=== PATIENT | male | born 1995 | race Asian ===

== ENCOUNTER 2024-04-29 22:34 | Emergency (ER) | payer OTHER, SELFPAY ==
[2024-04-29 22:36] VITALS: BMI 20.8
--- NOTE | 2024-04-29 22:53 | EDNOTE_ITS ---
<Statement entered by Shantel Zhao MD - 04/29/24 23:40> As co-signing physician, I was present and available for consult prn. I concur with the plan and care as documented by the midlevel provider. ED Skin Abcess FB-RME/HPI General Chief complaint: Skin/Abscess/Foreign Body Stated complaint: Rash x 3 mo Time Seen by Provider: 04/29/24 22:39 Arrival date/time: 04/29/24 22:34 RME / HPI RME / HPI narrative: 28-year-old male patient came in for evaluation regarding multiple skin lesions. Patient's been having multiple skin lesions, described as erythematous papules scattered all over, with itchiness, for the last few days. Patient was also diagnosed with ringworm to the left lower leg going on for more than 3 weeks. Was seen by PCP and was given antifungal cream which according to him he ran out of it. Patient denies any other complaints no medication was taken prior to arrival. Related Data Previous Rx's ?Medication ?Instructions ?Recorded clotrimazole 1 % topical cream 1 applic topical BID 2 weeks #45 04/29/24 (Lotrimin AF (clotrimazole)) grams permethrin 5 % topical cream 1 applic topical Q7D 2 do ses #60 04/29/24 (Elimite) grams prednisone 50 mg tablet 50 mg PO QDAY #7 tabs Allergies Allergy/AdvReac Type Severity Reaction Status Date / Time No Known Allergies Allergy Verified 04/29/24 22:35 Review of Systems Review of Systems Narrative Review of Systems: Review of system reviewed and within normal limits except mentioned in HPI ED Exam Narrative Physical exam: VITAL SIGNS: Reviewed. GENERAL APPEARANCE: Alert and interactive, follows commands, no acute distress, HEAD AND FACE: Non-traumatic. ENT: PERRL, pink conjunctivitis, eyelid no trauma, Mucous membrane moist. NECK: Supple, nontender, no nuchal rigidity. RECTAL: Deferred. GENITAL: Deferred. NEUROLOGICAL: Gross motor function intact sensory function intact, Appropriate for age. MUSCULOSKELETAL: low back nontender, full range of motion. EXTREMITIES: Nontender, full range of motion. SKIN: Color pink, dry, no rash, no lacerations, no abrasions, no contusions. LYMPHATICS: Deferred. Course Quality Measures none Orders Category Date Time Status DiphenhydrAMINE [Benadryl] Med 04/29/24 22:48 Discontinued 50 mg PO X1 ONE predniSONE Med 04/29/24 22:48 Discontinued 60 mg PO X1 ONE Skin / Abscess / Foreign Body MDM Narrative MDM Narrative:: 28-year-old male patient came in for evaluation regarding multiple skin lesions. Patient's been having multiple skin lesions, described as erythematous papules scattered all over, with itchiness, for the last few days. Patient was also diagnosed with ringworm to the left lower leg going on for more than 3 weeks. Was seen by PCP and was given antifungal cream which according to him he ran out of it. Patient denies any other complaints no medication was taken prior to arrival. Clinically patient is having scabies. Patient will be sent home on permethrin and prednisone for itchiness. Patient was also will be sent home on Lotrimin for his ringworm in the leg Was advised to see interior design faculty member. Patient appears nontoxic and hemodynamically stable. Patient discharged home and instructed to follow-up with primary care provider in 24 to 48 hours. Instructed to return to the emergency department immediately if worsening of symptoms Patient data External records reviewed:: None Clinical information provided by:: patient Social determinants that could affect healthcare access:: none Patient has the following chronic illnesses:: None How is presenting disease/condition affected by chronic disease/condition?: no chronic disease Evaluation data The following diagnostics were reviewed and interpreted by me:: other (specify) (None) Lab and/or radiology exams considered but not ordered:: None Interpretation Summary: None Medications / Prescriptions Medications or Prescriptions considered but not ordered:: None Medication administrations:: Medication Administration History Discontinued Medications Diphenhydramine HCl (Diphenhydramine 25 Mg Capsule) 50 mg PO X1 ONE Stop: 04/29/24 22:49 Prednisone (Prednisone 20 Mg Tablet) 60 mg PO X1 ONE Stop: 04/29/24 22:49 Prednisone and Benadryl Consultations Consultation(s) initiated? (list below): No Diagnosis Skin/Abscess Differential Diagnosis: abscess of skin or subcutaneous tissue, insect bites, impetigo and other (Scabies, ringworm) Most likely diagnosis given after review of the tests above:: Scabies, ringworm leg Admission Indicated Admission indicated?: not indicated Admission Request Was there a request for admission?: No Disposition Plan Disposition Plan: Discharge Discharge Attestation Discharge Attestation: The patient was given an opportunity to ask questions and understood the discharge instructions. Discharge instructions specifically effects, indications for sooner follow up or return to the emergency department, and the expected course of current diagnosis. Patient condition: Stable Discharge Plan Plan Patient Disposition: HOME (Self Care) Disposition Comment: Stable Prescriptions/Referrals Prescriptions/Med Rec: New permethrin [Elimite] 5 % cream 1 applic topical Q7D Qty: 60 2RF Rx Instructions: apply second treatment 14 days after first treatment if live lice remain prednisone 50 mg tablet 50 mg PO QDAY Qty: 7 0RF clotrimazole [Lotrimin AF (clotrimazole)] 1 % cream 1 applic topical BID 14 Days Qty: 45 0RF Problem List Clinical Impression: Scabies, Ringworm Patient/Caregiver Discharge Instructions Discharge Activity: activity as tolerated Education Materials: ED Ringworm, Skin, ED Scabies Additional Instructions: Thank you for the opportunity for serving you today. You are stable for discharged . 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
[2024-04-29 23:24] VITALS: BP 107/68; PULSE 79; RESP 18; TEMP 36.9; O2SAT 100
[2024-04-29] MEDS: predniSONE 20 MG TABLET 60 MG PO (23:31)
[2024-04-29] MEDS: DiphenhydrAMINE 25 MG CAPSULE 50 MG PO (23:31)
== END 2024-04-30 00:01 | disposition home or self-care (01) ==
PROVIDERS: Emergency Provider Emergency Medicine
DX: B86 Scabies (principal); B35.9 Dermatophytosis, unspecified
CPT/HCPCS: 99282; J7512; A9270